=== PATIENT | male | born 1980 | race American Indian/Alaskan Native ===

== ENCOUNTER 2018-12-31 10:00 | Emergency (ER) | payer SELFPAY ==
[2018-12-31 10:07] VITALS: BP 130/73
--- NOTE | 2018-12-31 11:02 | Emergency Department Report ---
ED ENT HPI - General Chief complaint: Dental/Oral Stated complaint: TOOTHACHE Time Seen by Provider: 12/31/18 10:39 Source: patient Mode of arrival: Ambulatory Limitations: No Limitations - History of Present Illness Initial comments: This is a 38-year-old male presents to the complaining of right lower dental pain for the past 2 days. Patient states that pain is localized to his right lower dentures. Patient denies any bleeding, swelling to that area of the mouth. Patient is taking Motrin with No relief . patient denies any trauma or injuries or falls. Denies fevers/chills with chest pain or difficulty swallowing. MD complaint: tooth pain Location: tooth # Severity: moderate Severity scale (0 -10): 5 Quality: aching, constant Consistency: constant Improves with: none Context- Dental: history of dental caries Associated Symptoms: denies: fever, cough, gum swelling, sore throat - Related Data Previous Rx's Medication Instructions Recorded Last Taken Type Clindamycin [Clindamycin CAP] 300 mg PO Q8H #21 cap 12/31/18 Unknown Rx Ibuprofen [Motrin] 800 mg PO Q8HR #20 tablet 12/31/18 Unknown Rx traMADol [Ultram 50 MG tab] 50 mg PO Q6HR PRN #8 tablet 12/31/18 Unknown Rx Allergies Allergy/AdvReac Type Severity Reaction Status Date / Time No Known Allergies Allergy Verified 12/31/18 10:01 ED Dental HPI - General Chief complaint: Dental/Oral Stated complaint: TOOTHACHE Time Seen by Provider: 12/31/18 10:39 Source: patient Mode of arrival: Ambulatory Limitations: No Limitations - Related Data Previous Rx's Medication Instructions Recorded Last Taken Type Clindamycin [Clindamycin CAP] 300 mg PO Q8H #21 cap 12/31/18 Unknown Rx Ibuprofen [Motrin] 800 mg PO Q8HR #20 tablet 12/31/18 Unknown Rx traMADol [Ultram 50 MG tab] 50 mg PO Q6HR PRN #8 tablet 12/31/18 Unknown Rx Allergies Allergy/AdvReac Type Severity Reaction Status Date / Time No Known Allergies Allergy Verified 12/31/18 10:01 ED Review of Systems ROS: Stated complaint: TOOTHACHE Other details as noted in HPI Comment: All other systems reviewed and negative ED Past Medical Hx - Past Medical History Previous Medical History?: No - Surgical History Past Surgical History?: Yes - Social History Smoking Status: Current Every Day Smoker Substance Use Type: None - Medications Home Medications: Home Medications Medication Instructions Recorded Confirmed Last Taken Type Clindamycin [Clindamycin CAP] 300 mg PO Q8H #21 cap 12/31/18 Unknown Rx Ibuprofen [Motrin] 800 mg PO Q8HR #20 tablet 12/31/18 Unknown Rx traMADol [Ultram 50 MG tab] 50 mg PO Q6HR PRN #8 tablet 12/31/18 Unknown Rx ED Physical Exam - General Limitations: No Limitations General appearance: alert, in no apparent distress - Head Head exam: Present: atraumatic, normocephalic - Eye Eye exam: Present: normal appearance - ENT ENT exam: Present: mucous membranes moist - Expanded ENT Exam Expanded Teeth exam: Present: dental caries, fractured tooth # (29) Throat exam: Positive: normal inspection. Negative: tonsillar erythema, tonsillar exudate - Neck Neck exam: Present: normal inspection - Respiratory Respiratory exam: Present: normal lung sounds bilaterally. Absent: respiratory distress - Cardiovascular Cardiovascular Exam: Present: regular rate, normal rhythm. Absent: systolic murmur, diastolic murmur, rubs, gallop - GI/Abdominal GI/Abdominal exam: Present: soft, normal bowel sounds - Rectal Rectal exam: Present: deferred - Extremities Exam Extremities exam: Present: normal inspection - Back Exam Back exam: Present: normal inspection - Neurological Exam Neurological exam: Present: alert, oriented X3 - Psychiatric Psychiatric exam: Present: normal affect, normal mood - Skin Skin exam: Present: warm, dry, intact, normal color. Absent: rash ED Course Vital Signs 12/31/18 10:05 Temperature 97.7 F Pulse Rate 69 Respiratory 18 Rate Blood Pressure 130/73 [Left] O2 Sat by Pulse 100 Oximetry ED Medical Decision Making - Medical Decision Making 38year-old male who presents with dental pain secondary to odontogenic caries At this point, patient will be discharged home on some antibiotics and pain trial, she will do well with an outpatient course of antibiotics. Follow up with the Dental Clinic as referred Vital signs are normal patient is in no acute distress. Pt had an effect uneventful ED stay Critical care attestation.: If time is entered above; I have spent that time in minutes in the direct care of this critically ill patient, excluding procedure time. ED Disposition Clinical Impression: Pain due to dental caries Disposition: DC-01 TO HOME OR SELFCARE Is pt being admited?: No Does the pt Need Aspirin: No Condition: Stable Instructions: Toothache (ED) Additional Instructions: Make sure to follow up with the primary care physician as discussed. Take all your medications as you've been prescribed. If you have any worsening symptoms or develop new symptoms please return to ED immediately. Prescriptions: Clindamycin [Clindamycin CAP] 300 mg PO Q8H #21 cap Ibuprofen [Motrin] 800 mg PO Q8HR #20 tablet traMADol [Ultram 50 MG tab] 50 mg PO Q6HR PRN #8 tablet PRN Reason: Pain Referrals: MIGUELINA TIAN MD [Primary Care Provider] - 3-5 Days [facility] [Outside] - 3-5 Days Forms: Accompanied Note, Work/School Release Form(ED) Time of Disposition: 11:04
== END 2018-12-31 11:23 | disposition home or self-care (01) ==
LOC: ED 10:00
DX: K08.89 Other specified disorders of teeth and supporting structures (principal); F17.200 Nicotine dependence, unspecified, uncomplicated

== ENCOUNTER 2019-01-30 17:41 | Emergency (ER) | payer SELFPAY ==
[2019-01-30 18:04] VITALS: BP 136/84
--- NOTE | 2019-01-30 18:06 | Emergency Department Report ---
ED ENT HPI - General Chief complaint: Dental/Oral Stated complaint: TOOTHACHE Time Seen by Provider: 01/30/19 18:01 Source: patient Mode of arrival: Ambulatory Limitations: No Limitations - History of Present Illness Initial comments: pt is a 38 yo male who presents with right lower dental pain that began a couple days ago. states he has an appt with a dentist in 3 weeks. states he hasnt seen a dentist in a year. no fever, no N/V, no facial edema. no PMHx. no allergies to meds. - Related Data Previous Rx's Medication Instructions Recorded Last Taken Type Clindamycin [Clindamycin CAP] 300 mg PO Q8H #21 cap 12/31/18 Unknown Rx Ibuprofen [Motrin 800 MG tab] 800 mg PO Q8HR PRN #14 tablet 01/30/19 Unknown Rx Penicillin Vk [Veetids TAB] 500 mg PO QID 7 Days #56 tablet 01/30/19 Unknown Rx traMADol [Ultram 50 MG tab] 50 mg PO Q6HR PRN #4 tablet 01/30/19 Unknown Rx Allergies Allergy/AdvReac Type Severity Reaction Status Date / Time No Known Allergies Allergy Verified 01/30/19 17:42 ED Dental HPI - General Chief complaint: Dental/Oral Stated complaint: TOOTHACHE Time Seen by Provider: 01/30/19 18:01 Source: patient Mode of arrival: Ambulatory Limitations: No Limitations - Related Data Previous Rx's Medication Instructions Recorded Last Taken Type Clindamycin [Clindamycin CAP] 300 mg PO Q8H #21 cap 12/31/18 Unknown Rx Ibuprofen [Motrin 800 MG tab] 800 mg PO Q8HR PRN #14 tablet 01/30/19 Unknown Rx Penicillin Vk [Veetids TAB] 500 mg PO QID 7 Days #56 tablet 01/30/19 Unknown Rx traMADol [Ultram 50 MG tab] 50 mg PO Q6HR PRN #4 tablet 01/30/19 Unknown Rx Allergies Allergy/AdvReac Type Severity Reaction Status Date / Time No Known Allergies Allergy Verified 01/30/19 17:42 ED Review of Systems ROS: Stated complaint: TOOTHACHE Other details as noted in HPI Comment: All other systems reviewed and negative ED Past Medical Hx - Past Medical History Previous Medical History?: No - Surgical History Past Surgical History?: No - Social History Smoking Status: Current Every Day Smoker Substance Use Type: None - Medications Home Medications: Home Medications Medication Instructions Recorded Confirmed Last Taken Type Clindamycin [Clindamycin CAP] 300 mg PO Q8H #21 cap 12/31/18 Unknown Rx Ibuprofen [Motrin 800 MG tab] 800 mg PO Q8HR PRN #14 tablet 01/30/19 Unknown Rx Penicillin Vk [Veetids TAB] 500 mg PO QID 7 Days #56 tablet 01/30/19 Unknown Rx traMADol [Ultram 50 MG tab] 50 mg PO Q6HR PRN #4 tablet 01/30/19 Unknown Rx ED Physical Exam - General Limitations: No Limitations General appearance: alert, in no apparent distress - Head Head exam: Present: atraumatic, normocephalic - Eye Eye exam: Present: normal appearance - ENT ENT exam: Present: normal orophraynx, mucous membranes moist, other (cracked tooth present on the right lower jaw, missing tooth with partial reminents on the left upper jaw as well, no edema of the gumline, no facial edema, uvula is midline, no uvular edema) - Respiratory Respiratory exam: Present: normal lung sounds bilaterally. Absent: respiratory distress, wheezes, rales, rhonchi, stridor, chest wall tenderness, accessory muscle use, decreased breath sounds, prolonged expiratory - Cardiovascular Cardiovascular Exam: Present: regular rate, normal rhythm, normal heart sounds. Absent: systolic murmur, diastolic murmur, rubs, gallop - Neurological Exam Neurological exam: Present: alert, oriented X3 - Psychiatric Psychiatric exam: Present: normal affect, normal mood - Skin Skin exam: Present: warm, dry, intact ED Course Vital Signs 01/30/19 18:02 Temperature 98.4 F Pulse Rate 104 H Respiratory 16 Rate Blood Pressure 136/84 [Left] O2 Sat by Pulse 97 Oximetry ED Medical Decision Making - Medical Decision Making pt is a 38 yo male who presents with right lower dental pain that began a couple days ago. states he has an appt with a dentist in 3 weeks. states he hasnt seen a dentist in a year. no fever, no N/V, no facial edema. no PMHx. no allergies to meds. VSS. on exam: cracked tooth present on the right lower jaw, missing tooth with partial reminents on the left upper jaw as well, no edema of the gumline, no facial edema, uvula is midline, no uvular edema. given prescription penicillin, ibuprofen, and very short course of tramadol for severe pain. advised pt to please take medication as prescribed. do not drive or operate heavy machinery while taking pain medication. follow up with a dentist in the next 2-3 days. it is very important you follow up with a dentist for a permanent solution. given list of community dental clinics. return to the emergency room for any new or worsening symptoms. Critical care attestation.: If time is entered above; I have spent that time in minutes in the direct care of this critically ill patient, excluding procedure time. ED Disposition Clinical Impression: Dental caries, Cracked tooth Disposition: TO HOME OR SELFCARE Is pt being admited?: No Does the pt Need Aspirin: No Condition: Stable Instructions: Dental Caries (ED) Additional Instructions: please take medication as prescribed. do not drive or operate heavy machinery while taking pain medication. follow up with a dentist in the next 2-3 days. it is very important you follow up with a dentist for a permanent solution. given list of community dental clinics. return to the emergency room for any new or worsening symptoms. Prescriptions: Ibuprofen [Motrin 800 MG tab] 800 mg PO Q8HR PRN #14 tablet PRN Reason: pain traMADol [Ultram 50 MG tab] 50 mg PO Q6HR PRN #4 tablet PRN Reason: Pain , Severe (7-10) Penicillin Vk [Veetids TAB] 500 mg PO QID 7 Days #56 tablet Referrals: a, dentist [Other] - 2-3 Days Time of Disposition: 18:22 Print Language: [place]
== END 2019-01-30 18:29 | disposition home or self-care (01) ==
LOC: ED 17:41
DX: K03.81 Cracked tooth (principal); K02.9 Dental caries, unspecified; F17.200 Nicotine dependence, unspecified, uncomplicated; Z79.899 Other long term (current) drug therapy
CPT/HCPCS: 99282